=== PATIENT | female | born 1960 | race Caucasian/White ===

== ENCOUNTER 2023-01-21 12:27 | Emergency (ER) | payer BC, SELFPAY ==
[2023-01-21 12:29] VITALS: BP 119/103; PULSE 88; RESP 18; TEMP 36.4; O2SAT 100
--- NOTE | 2023-01-21 12:40 | ED.RECABL ---
HPI - Recheck/Abnormal Lab/Rx General Chief Complaint: Recheck/Abnormal Lab/Rx Stated Complaint: hypertension Time Seen by Provider: 01/21/23 12:43 Source: patient Mode of arrival: ambulatory Limitations: no limitations History of Present Illness HPI narrative: This is a 62-year-old female that presents to the emergency department for elevated blood pressure reading. Reports she was trying to get some dental work done and her blood pressure was elevated. They told her they could not do the procedure and she needed to come to the emergency department. She does not have any symptoms. No previous history of hypertension. Does report history of whitecoat hypertension. Denies headache, chest pain, or shortness of breath. Review of Systems Review of Systems: CONSTITUTIONAL: Denies fever CARDIOVASCULAR: Denies chest pain, or edema. RESPIRATORY: Denies dyspnea. NEUROLOGIC: Denies numbness, or weakness. All systems reviewed & are unremarkable except as noted in HPI and below PMFSH Past Medical History Medical History (Updated 01/21/23 @ 12:45 by Ivonne Faulkner PA-C) No active medical problems Social History Social History (Updated 01/21/23 @ 12:45 by Ivonne Faulkner PA-C) Smoking status: Current every day smoker Exam Narrative: GENERAL: Well-appearing, well-nourished, and in no acute distress. HEAD: Normocephalic, atraumatic. EYES: EOMI. CHEST: No respiratory distress. HEART: Regular rate EXTREMITIES: Normal range of motion. No edema. SKIN: Warm, dry, no rash. NEURO: No focal deficits. Alert and oriented x3. PSYCH: Normal mood and affect Course Course Emergency Course: Patient agrees with plan of care Vital Signs Vital signs: Vital Signs Temperature 97.5 F L 01/21/23 12:29 Pulse Rate 88 01/21/23 12:29 Respiratory Rate 18 01/21/23 12:29 Blood Pressure 119/103 H 01/21/23 12:29 Pulse Oximetry 100 01/21/23 12:29 Oxygen Delivery Room Air 01/21/23 12:29 Temperature 97.5 F L 01/21/23 12:29 Pulse Rate 88 01/21/23 12:29 Respiratory Rate 18 01/21/23 12:29 Blood Pressure 119/103 H 01/21/23 12:29 Pulse Oximetry 100 01/21/23 12:29 Oxygen Delivery Room Air 01/21/23 12:29 MDM - Recheck/Abnormal Lab/Rx MDM Narrative Medical decision making narrative: Patient presents to the emergency department from her dental office for an elevated blood pressure reading. Her blood pressure here is much improved. Diastolic is still elevated at 103. She is asymptomatic. No previous history of hypertension. She reports she does get white coat hypertension. She was instructed she should continue to monitor her blood pressure at home and follow-up with primary provider. She was given warnings to return to the ER Differential Diagnosis Differential diagnosis: Likely other (elevated blood pressure reading, hypertension) Critical Care Time Critical Care Time Critical Care Time: No Discharge Plan Discharge Clinical Impression: Elevated blood pressure reading Patient Disposition: Home, Self-Care Condition: Stable Instructions: Hypertension (ED) Additional Instructions: Return to the Emergency Department if you experience fever, chest pain, shortness of breath, headache, numbness, weakness, swelling in your legs, or any other symptoms that are concerning to you Continue to monitor your blood pressure at home Follow up with primary care doctor Follow-up/Referrals: PHYSICIAN,HOTEL OR MOTEL MANAGER [Primary Care Provider] - Nam Levine MD [Physician] - 1 Week
== END 2023-01-21 12:58 | disposition home or self-care (01) ==
LOC: ANHED 12:51
PROVIDERS: Emergency Provider Physician Assistant
DX: R03.0 Elevated blood-pressure reading, without diagnosis of hypertension (principal); F17.200 Nicotine dependence, unspecified, uncomplicated
CPT/HCPCS: 99281

== ENCOUNTER 2023-02-01 09:26 | Emergency (ER) | payer OTHER, BC, SELFPAY ==
--- NOTE | ~2023-02-01 | XR_ITS ---
EXAMINATION: XR knee LT min 4V DATE: 02/01/2023 10:10 INDICATION: Anterior patellar pain and swelling post fall TECHNIQUE: Anteroposterior, 2 oblique, sunrise and crosstable lateral views of the left knee were obt ained COMPARISON: None. FINDINGS: Nondisplaced transverse intra-articular fracture extending across the mid left patella. Alignment re shane essentially anatomic with no other fractures identified. There is overlying prepatellar soft ti ssue swelling. 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 No left knee joint effusion. IMPRESSION: 1. Nondisplaced transverse intra-articular fracture extending across the mid left patella. Reviewed, dictated and finalized at location A. IMPRESSION: 1. Nondisplaced transverse intra-articular fracture extending across the mid le ft patella.
[2023-02-01 09:27] VITALS: BP 137/92; PULSE 116; RESP 20; TEMP 36.3; O2SAT 97
[2023-02-01 09:39] VITALS: BP 110/74; PULSE 110; RESP 18; O2SAT 100
--- NOTE | 2023-02-01 10:41 | ED.GENADULT ---
HPI - General Adult General Chief complaint: Extremity Injury, Lower Stated complaint: knee pain after fall Time Seen by Provider: 02/01/23 09:32 History of Present Illness HPI narrative: 62-year-old female present to the emergency department for evaluation of left knee pain. Patient reports he had a fall few days ago where she landed directly on the left knee. Patient has increased pain with ambulation. Patient denies any other pain or injury. Patient does have a prior history of a femur fracture on that left leg. Related Data Allergies Allergy/AdvReac Type Severity Reaction Status Date / Time No Known Allergies Allergy Verified 02/01/23 09:26 Review of Systems Review of Systems: All systems reviewed & are unremarkable except as noted in HPI and below PMFSH Past Medical History Medical History (Updated 02/01/23 @ 10:45 by Tremaine Butler MD) No active medical problems Social History Social History (Updated 01/21/23 @ 12:45 by Ivonne Faulkner PA-C) Smoking status: Current every day smoker Exam Narrative: APPEARANCE: Well appearing, no pain, no distress, well-nourished. HEAD: normocephalic, atraumatic. EYES: PERRLA/EOMI, conjunctivae clear. NOSE: Normal no drainage NECK: Supple. No adenopathy, no masses. RESPIRATORY: Airway patent, respirations nonlabored. Clear to auscultation bilaterally, no rales, rhonchi, wheezing. CARDIOVASCULAR: Regular rate and rhythm without murmurs rubs or gallops. ABDOMINAL: Soft, nontender, nondistended, normal bowel sounds MUSCULOSKELETAL: Left knee tenderness to palpation NEURO: Alert. Cranial nerves II through XII intact. SKIN: Warm, dry. Normal Color Course Course Emergency Course: 62-year-old female presented to the ED for evaluation of left knee pain. X-ray showed a left patellar fracture. Patient was placed in a knee immobilizer. Patient states she does not do well on crutches and patient does have a walker at home. Patient was provided orthopedic follow-up. Vital Signs Vital signs: Vital Signs Temperature 97.4 F L 02/01/23 09:27 Pulse Rate 116 H 02/01/23 09:27 Respiratory Rate 20 02/01/23 09:27 Blood Pressure 137/92 H 02/01/23 09:27 Pulse Oximetry 97 02/01/23 09:27 Oxygen Delivery Room Air 02/01/23 09:27 Temperature 97.4 F L 02/01/23 09:27 Pulse Rate 101 H 02/01/23 11:17 Respiratory Rate 18 02/01/23 11:17 Blood Pressure 101/76 02/01/23 11:17 Pulse Oximetry 97 02/01/23 11:17 Oxygen Delivery Room Air 02/01/23 09:27 Medical Decision Making Differential Diagnosis Differential Diagnosis: Knee contusion, internal derangement of knee, patellar fracture, tibial plateau fracture, distal femur fracture Vital Signs Vital Signs: Vital Signs Temperature 97.4 F L 02/01/23 09:27 Pulse Rate 116 H 02/01/23 09:27 Respiratory Rate 20 02/01/23 09:27 Blood Pressure 137/92 H 02/01/23 09:27 Pulse Oximetry 97 02/01/23 09:27 Oxygen Delivery Room Air 02/01/23 09:27 Temperature 97.4 F L 02/01/23 09:27 Pulse Rate 101 H 02/01/23 11:17 Respiratory Rate 18 02/01/23 11:17 Blood Pressure 101/76 02/01/23 11:17 Pulse Oximetry 97 02/01/23 11:17 Oxygen Delivery Room Air 02/01/23 09:27 Imaging Data Radiologist's impression: Impressions Knee X-Ray 02/01/23 10:11 IMPRESSION: 1. Nondisplaced transverse intra-articular fracture extending across the mid left patella. Discharge Plan Discharge Clinical Impression: Closed fracture of left patella Patient Disposition: Home, Self-Care Condition: Stable Instructions: Antibiotic Form Additional Instructions: Tylenol and ibuprofen for pain control. Knee immobilizer for increased stability. Nonweightbearing on the left knee. Use the walker if you are not able to tolerate crutches. Have close follow-up with orthopedics. If you have any worsening symptoms please call or return to the emergency department. Follow-u
[2023-02-01 11:17] VITALS: BP 101/76; PULSE 101; RESP 18; O2SAT 97
== END 2023-02-01 11:18 | disposition home or self-care (01) ==
PROVIDERS: Emergency Provider Emergency Medicine
DX: S82.035A Nondisplaced transverse fracture of left patella, initial encounter for closed fracture (principal); F17.200 Nicotine dependence, unspecified, uncomplicated; W19.XXXA Unspecified fall, initial encounter
CPT/HCPCS: 73564; 99284

== ENCOUNTER 2023-10-25 00:10 | Day surgery (SDC) | payer BC, SELFPAY ==
[2023-10-14 10:31] VITALS: BMI 27.5
[2023-10-25 06:14] VITALS: BP 143/86; PULSE 116; RESP 18; TEMP 36.6; O2SAT 100
[2023-10-25] MEDS: LACTATED RINGERS 1,000 ML 150 ML IV CONT (06:26)
[2023-10-25 06:27] LABS: Glucose Point of Care 125 mg/dl (65-105)
--- NOTE | 2023-10-25 07:21 | WPDANESEPPF ---
Anes - Initial Pre Proc Eval Procedure: Operation Date: 10/25/23 07:30 Proposed Procedures p Colonoscopy - Kyle Mendez MD Date/Time: 10/25/23 07:21 Surgeon: Kyle Mendez MD Pre Op Diagnosis: Other fecal abnormalities Patient Data Age: 63 Gender: F Height: 1.6 m Weight: 69.8 kg Last Vital Signs Temp 97.9 F 10/25/23 06:14 Pulse 116 H 10/25/23 06:14 Resp 18 10/25/23 06:14 BP 143/86 H 10/25/23 06:14 Pulse Ox 100 10/25/23 06:14 O2 Del Method Room Air 10/25/23 06:14 Allergies Allergy/AdvReac Type Severity Reaction Status Date / Time No Known Allergies Allergy Verified 10/14/23 10:30 Home Medications Medication Instructions Recorded Confirmed Type losartan 25 mg tablet 25 mg PO DAILY #90 tabs 08/13/23 10/25/23 Rx metformin 500 mg tablet,extended 500 mg PO DAILY #90 tabs 08/27/23 10/25/23 Rx release 24 hr rosuvastatin 5 mg tablet 5 mg PO QHS #90 tabs 08/27/23 10/25/23 Rx ergocalciferol (vitamin D2) 1,250 50,000 unit PO WEEKLY 10/14/23 10/25/23 History mcg (50,000 unit) capsule Laboratory Tests 10/25/23 06:24 POC Capillary Glucose 125 H mg/dl (65-105) Patient hx anesthesia problems: none Family hx anesthesia problems: none Results Review: All pre-operative results and documents have been reviewed as part of the pre-operative evaluation. [facility] Past Medical History Medical History (Updated 09/19/23 @ 07:43 by Tiffanie Sutherland APRN) Hyperlipidemia Hypertension No active medical problems Nondisplaced fracture of left patella January 2023 Family History Family History Mother Diabetes mellitus Social History Social History (Updated 08/13/23 @ 13:38 by Wanda Rosenberg MA) Years smoked: 40 Smoking status: Current every day smoker Tobacco type: cigarettes Additional smoking assessment comments: currently smokes 10 cigarettes per day Alcohol intake: never Substance use type: does not use Do You Feel Safe in your Home?: Yes Lack of Transportation: No Lack of Food: Never True Current Housing: I Have Housing Concerned About Future Housing: No Difficulty Paying Gas/Electric Bills: No Difficulty Paying for Meds: No Currently Unemployed: No Education: High School Diploma/GED Difficulty w/ Childcare or Family Care: No Living arrangements: other Additional living arrangements comments: with sp 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 Informed Consent: The patient's anesthetic plan and its attendant risks and benefits were discussed with the patient/family/POA. Questions were solicited and answers provided to the satisfaction of the patient/family/POA.
--- NOTE | 2023-10-25 07:23 | PM.HPGS ---
History of Present Illness History of Present Illness Consent: Risks, benefits, and alternatives have been discussed and questions answered. Patient agrees to proceed with procedure. Chief complaint: Other fecal abnormalities Narrative: Agatha Mckenna is a 63 year old female here for first colonoscopy, + cologuard Review of Systems Review of Systems: All systems reviewed & are unremarkable except as noted in HPI and below PMFSH Past Medical History Medical History (Updated 09/19/23 @ 07:43 by Tiffanie Sutherland APRN) Hyperlipidemia Hypertension No active medical problems Nondisplaced fracture of left patella January 2023 Family History Family History Mother Diabetes mellitus Social History Social History (Updated 08/13/23 @ 13:38 by Wanda Rosenberg MA) Years smoked: 40 Smoking status: Current every day smoker Tobacco type: cigarettes Additional smoking assessment comments: currently smokes 10 cigarettes per day Alcohol intake: never Substance use type: does not use Do You Feel Safe in your Home?: Yes Lack of Transportation: No Lack of Food: Never True Current Housing: I Have Housing Concerned About Future Housing: No Difficulty Paying Gas/Electric Bills: No Difficulty Paying for Meds: No Currently Unemployed: No Education: High School Diploma/GED Difficulty w/ Childcare or Family Care: No Living arrangements: other Additional living arrangements comments: with sp 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 Gender identity (if verbalized by the patient): Female Agree to blood products: Yes Meds Home Medications and Allergies Home Medications Medication Instructions Recorded Confirmed Type losartan 25 mg tablet 25 mg PO DAILY #90 tabs 08/13/23 10/25/23 Rx metformin 500 mg tablet,extended 500 mg PO DAILY #90 tabs 08/27/23 10/25/23 Rx release 24 hr rosuvastatin 5 mg tablet 5 mg PO QHS #90 tabs 08/27/23 10/25/23 Rx ergocalciferol (vitamin D2) 1,250 50,000 unit PO WEEKLY 10/14/23 10/25/23 History mcg (50,000 unit) capsule Allergies Allergy/AdvReac Type Severity Reaction Status Date / Time No Known Allergies Allergy Verified 10/14/23 10:30 Vital Signs Vital Signs - 24 hr 10/25/23 06:14 Temperature 97.9 F Pulse Rate 116 H Respiratory Rate 18 Blood Pressure 143/86 H Pulse Oximetry 100 Oxygen Delivery Room Air Exam Const: General: comfortable and no acute distress HENMT: Face/Nose/Sinus: Normal nares present Eyes: General: appearance normal, both eyes and all related structures Neck: Neck: no JVD Resp: Auscultation: clear to auscultation bilaterally Cardio: Rate: regular rate Rhythm: regular rhythm GI: Inspection: non-distended GI Palp: Yes Soft to palpation Skin: General skin exam: normal color Neuro: General: gait normal Speech: normal speech Extrem: General: normal to inspection Psych: Mental Status: mental status grossly normal Assessment and Plan Assessment and plan (1) Positive colorectal cancer screening using Cologuard test: Code(s): R19.5 - Other fecal abnormalities Status: Acute Assessment and Plan: colonoscopy
[2023-10-25 07:39] VITALS: BP 99/52; PULSE 83; RESP 18; O2SAT 99
[2023-10-25 07:49] VITALS: BP 106/72; PULSE 85; RESP 18; O2SAT 98
[2023-10-25 07:59] VITALS: BP 130/68; PULSE 83; RESP 18; O2SAT 99
== END 2023-10-25 08:08 | disposition home or self-care (01) ==
PROVIDERS: PCP Nurse Practitioner Adult Health; Visit Provider Internal Medicine Gastroenterology
PROC: 0DJD8ZZ Inspection of Lower Intestinal Tract, Via Natural or Artificial Opening Endoscopic (ICD-10-PCS; CPT 45378; principal; 2023-10-25 07:30)
DX: K63.5 Polyp of colon (principal); K62.1 Rectal polyp; I10 Essential (primary) hypertension; E78.5 Hyperlipidemia, unspecified; F17.210 Nicotine dependence, cigarettes, uncomplicated; Z79.84 Long term (current) use of oral hypoglycemic drugs
CPT/HCPCS: 45385; 82948; 88305; J2704; J7120